=== PATIENT | male | born 1955 | race Caucasian/White ===

== ENCOUNTER 2022-11-07 11:36 | Inpatient (IN) ==
--- NOTE | 2022-11-06 09:50 | Anesthesiology Consultation ---
Date of Service November 06, 2022 Assessment & Plan (1) Encounter for pre-operative examination: Plan - check CBC with diff and BMP STAT am DOS. - Case discussed in detail with Dr. Honeycutt who advised if patient is still experiencing symptoms, surgery should be postponed 1-2 weeks. Pt reports is still wheezing when laying flat, states cough has improved still coughing every morning productive of sputum. He was advised per anesthesia, surgery should be postponed due to respiratory risk. He verbalized understanding, expresses has recently had increased back pain and is concerned with delaying surgery. He denies weakness, lower extremity paresthesias, bowel or bladder changes or saddle anesthesias. I advised pt to call Dr. Lee's office, if Dr. Lee feels surgery cannot wait I will further review with anesthesiologist. I also made surgeon's office aware of above. - medical clearance 10/29/22: "...follow up with ER visit on 10/27...was wheezing, coughing and SOB when laying flat as well as n/v and 10# weight gain over 1 month. W/u was negative for acute concerns...compliant with Advair and Spiriva...seems a little bit better today but still having a cough mostly at nighttime and wheezing...weight likely related to poor physical activity due to back pain...iron overload noted in his liver consistent with hemochromatosis...appointment with hematology pending...COPD, acute exacerbation...will be treated with course of doxycycline for COPD exacerbatio n...will be switched to Trelegy...was not recently admitted but I am afraid he could be if we do not fix his COPD sooner...will follow-up with hematology for discussion of iron overloaded liver and hemochromatosis...aspirin...if stopped, needs to be restarted 24 hours postop...risk for surgery is 0 points...according to [facility] Perioperative Risk calculator...0.3% CHARMAINE risk...current medical conditions are stable and pt is medically optimized for surgery..." - COVID screening: Per errand runner on 11/01/2022: Pt returning from [facility] DOS. To surgeon's discretion if preop COVID testing is needed. Chart Review Chart Review: Pending: Refer to Additional Notes / Consult section and Patient NOT seen in Pre Admission Testing History Surgery Operation Date: 11/07/22 12:55 Proposed Procedures p L3-L4 Decompression - Kwesi Lee DO s L4 Kyphoplasty - Kwesi Lee DO Height/Weight Height: 5 ft 10 in Weight: 96.615 kg Allergies Allergy/AdvReac Type Severity Reaction Status Date / Time phenazopyridine Allergy Mild Rash Verified 11/07/22 12:05 [From Pyridium] Medications Home Medications Medication Instructions Recorded Confirmed Last Taken albuterol sulfate 90 mcg/actuation 2 inh inhalation Q6H PRN SHORT OF 06/21/19 11/07/22 11/07/22 07:00 breath activated powder inhaler BREATH aspirin 81 mg tablet,delayed 81 mg PO Q2D 06/21/19 11/07/22 11/06/22 20:00 release escitalopram oxalate 10 mg tablet 10 mg PO QAM 06/21/19 11/07/22 11/07/22 07:00 (Lexapro) finasteride 5 mg tablet 5 mg PO Q2D 06/21/19 11/07/22 11/06/22 08:00 irbesartan 150 mg tablet 150 mg PO QAM 06/21/19 11/07/22 11/07/22 07:00 rosuvastatin 10 mg tablet 10 mg PO QAM 06/21/19 11/07/22 11/07/22 07:00 tadalafil 5 mg tablet (Cialis) 5 mg PO Q2D 06/21/19 11/07/22 Unknown acetaminophen 500 mg tablet 1,000 mg PO Q6H PRN Pain 11/01/22 11/07/22 11/06/22 22:00 calcium carbonate 600 mg calcium 600 mg PO HS 11/01/22 11/07/22 11/06/22 20:00 (1,500 mg) tablet (Calcium) celecoxib 100 mg capsule (Celebrex) 100 mg PO DAILY PRN Pain 11/01/22 11/07/22 10/31/22 08:00 cholecalciferol (vitamin D3) 100 100 mcg PO HS 11/01/22 11/07/22 10/31/22 08:00 mcg (4,000 unit) capsule cyanocobalamin (vitamin B-12) 1,000 mcg PO HS 11/01/22 11/07/2223 08:00 1,000 mcg tablet (Vitamin B-12) fluticasone 250 mcg-salmeterol 50 1 inh inhalation BID 11/01/22 11/07/22 11/07/22 07:00 mcg/dose blistr powdr for inhalation (Advair Diskus) gabapentin 100 mg capsule 100 mg PO BID 11/01/22 11/07/22 11/07/22 07:00 hydrochlorothiazide 25 mg tablet 25 mg PO QAM 11/01/22 11/07/22 11/07/22 07:00 metoprolol succinate 25 mg 25 mg PO HS 11/01/22 11/07/22 11/06/22 08:00 tablet,extended release 24 hr omeprazole 20 mg tablet,delayed 20 mg PO BID 11/01/22 11/07/22 11/07/22 07:00 release tiotropium bromide 2.5 1 inh inhalation BID 11/01/22 11/07/22 11/07/22 07:00 mcg/actuation mist for inhalation (Spiriva Respimat) tramadol 50 mg tablet 50 mg PO UD 11/01/22 11/07/22 11/07/22 07:00 Active Medications Generic Name Dose Route Start Last Admin Trade Name Freq PRN Reason Stop Dose Admin Acetaminophen 1,000 mg 11/07/22 06:00 11/07/22 12:14 Acetaminophen 500 Mg Tab PO 11/07/22 18:00 1,000 mg PREOP SHAILA Administration Celecoxib 200 mg 11/07/22 06:00 11/07/22 12:15 Celebrex 200 Mg Cap PO 11/07/22 18:00 200 mg PREOP SHAILA Administration Gabapentin 300 mg 11/07/22 06:00 11/07/22 12:15 Gabapentin 300 Mg Cap PO 11/07/22 18:00 300 mg PREOP SHAILA Administration Lactated Ringer's 1,000 mls @ 125 mls/hr 11/07/22 12:15 11/07/22 12:15 Lr IV 12/07/22 12:14 125 mls/hr .Q8H SHAILA Administration Past Medical History Medical History Anxiety BPH (benign prostatic hyperplasia) Chronic obstructive pulmonary disease daily inh Elevated ferritin level per pt's -"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 Social History Smoking Status: Former smoker tobacco type: cigarettes Smoking cigarettes per day: 10 CIG DAILY Do You Dip or Chew Tobacco: No Smoking End Date: 10/31 years ago Hx Alcohol Use: Yes Alcohol type: wine alcohol intake frequency: 0-2 drinks per day Hx Substance Use: No substance use type: does not use Physical Exam Vital Signs Last Vital Signs Temp 36.8 C 11/07/22 12:47 Pulse 72 11/07/22 12:47 Resp 18 11/07/22 12:47 BP 156/106 H 11/07/22 12:47 Pulse Ox 97 11/07/22 12:47 O2 Del Method 11/07/22 12:47 Testing Laboratory Results 11/07/22 11:58 11/07/22 11:58 Blood Type A Positive 11/07/22 11:58 Antibody Screen NEGATIVE 11/07/22 11:58 10/31/2021 WBC: H/H: PLATELETS: SODIUM: POTASSIUM: CHLORIDE: CO2: BUN: CREATININE: GLUCOSE: PT: PTT: INR: UA: yellow, clear, negative TYPE AND SCREEN: COVID: Electrocardiogram Date: 10/27/22 Sinus rhythm, rate 87 bpm Nonspecific T wave abnormality Chest X-Ray Date: 10/27/22 *1 view* No acute cardiopulmonary process identified. No significant change from prior
[~2022-11-07 11:36] MED LIST: ACETAMINOPHEN 500 MG TAB PO SCH; CeleBREX 200 MG CAP PO SCH; GABAPENTIN 300 MG CAP PO SCH; ceFAZolin 2000MG 2,000 MG/15 ML SYR IV SCH
[2022-11-07] MEDS ORDERED: ONDANSETRON INJ 2 MG/ML 2 ML VIAL ONE (11:45)
[2022-11-07] MEDS ORDERED: LIDOCAINE 2% MPF LOCAL 5 ML VIAL INFIL ONE (11:45)
[2022-11-07] MEDS ORDERED: MIDAZOLAM HCL 1 MG/ML 2ML VIAL ONE (11:45)
[2022-11-07] MEDS ORDERED: ROCURONIUM BROMIDE 10 MG/ML 5 ML VIAL IV ONE (11:45)
[2022-11-07] MEDS ORDERED: PROPOFOL IV EMULSION 10 MG/ML 20 ML VIAL IV ONE (11:45)
[2022-11-07] MEDS ORDERED: fentaNYL citrate 100 MCG/2 ML VIAL ONE (11:45)
[2022-11-07] MEDS ORDERED: DEXAMETHASONE SOD INJ 4 MG/ML VIAL ONE (11:45)
[2022-11-07] MEDS: LACTATED RINGER'S 1,000 ML IV SCH ×2 (12:15→21:45)
[2022-11-07 12:23] LABS: Basophils # (auto) 0.03 K/uL (0-0.2); Basophils % (auto) 0.4 %; Eosinophils # (auto) 0.04 K/uL (0-0.50); Eosinophils % (auto) 0.6 %; Hematocrit (blood only) 39.5 % (40.1-51.0); Hemoglobin 14.2 g/dl (14.0-18.0); Immature Granulocytes # (auto) 0.03 K/uL (0.00-0.02); Immature Granulocytes % (auto) 0.4 %; Lymphocytes % (auto) 14.9 %; Mean Corpuscular Hemoglobin 32.9 pg (25.0-34.0); Mean Corpuscular Hgb Conc 35.9 g/dL (32.0-36.0); Mean Corpuscular Volume 91.6 fL (80.0-100.0); Mean Platelet Volume 9.2 fL (9.4-12.4); Neutrophils # (auto) 5.21 K/uL (1.4-6.5); Neutrophils % (auto) 77.7 %; Platelet Count 184 K/uL (130-400); RDW Coefficient of Variation 12.5 % (11.5-14.5); Red Blood Count 4.31 M/uL (4.63-6.08); White Blood Count 6.71 K/ul (4.8-10.8)
[2022-11-07 12:39] LABS: Calcium 10.9 mg/dl (8.5-10.1); Creatinine Clr Calc Pharmacy 80.7 ml/min; Est GFR (African American) 88.6 ml/min; Est GFR (Non-African American) 76.5 ml/min; Potassium 4.2 mmol/L (3.5-5.1)
[2022-11-07] MEDS ORDERED: LABETALOL HCL IV 5 MG/ML 20ML IV PRN (13:28)
[2022-11-07] MEDS ORDERED: ATROPINE SULFATE 0.1 MG/ML 10ML SYR IV PRN (13:28)
[2022-11-07] MEDS ORDERED: ONDANSETRON INJ 2 MG/ML 2 ML VIAL IV PRN ×2 (13:28→17:15)
--- NOTE | 2022-11-07 13:34 | History & Physical Bridge Note ---
Date of Service November 07, 2022 History & Physical Bridge Note I have examined the patient, reviewed the History & Physical and in the interval since the performance of the History & Physical I have noted the following changes of clinical significance: no changes noted
--- NOTE | 2022-11-07 13:36 | History & Physical Report ---
Date of Service November 07, 2022 Assessment & Plan (1) Neurogenic claudication due to lumbar spinal stenosis: Plan: L4 kyphoplasty, L3-L4 decompression History of Present Illness Chief Complaint: Back and bilateral leg pain Primary Care Provider: Nany Ornelas PA-C This is a 67-year-old male presents with car persistent back and by leg pain after failing such course of nonoperative care is here for surgical invention. Allergies Allergy/AdvReac Type Severity Reaction Status Date / Time phenazopyridine Allergy Mild Rash Verified 11/07/22 12:05 [From Pyridium] Home Medications Medication Instructions Recorded Confirmed Type albuterol sulfate 90 mcg/actuation 2 inh inhalation Q6H PRN SHORT OF 06/21/19 11/07/22 History breath activated powder inhaler BREATH aspirin 81 mg tablet,delayed 81 mg PO Q2D 06/21/19 11/07/22 History release escitalopram oxalate 10 mg tablet 10 mg PO QAM 06/21/19 11/07/22 History (Lexapro) finasteride 5 mg tablet 5 mg PO Q2D 06/21/19 11/07/22 History irbesartan 150 mg tablet 150 mg PO QAM 06/21/19 11/07/22 History rosuvastatin 10 mg tablet 10 mg PO QAM 06/21/19 11/07/22 History tadalafil 5 mg tablet (Cialis) 5 mg PO Q2D 06/21/19 11/07/22 History acetaminophen 500 mg tablet 1,000 mg PO Q6H PRN Pain 11/01/22 11/07/22 History calcium carbonate 600 mg calcium 600 mg PO HS 11/01/22 11/07/22 History (1,500 mg) tablet (Calcium) celecoxib 100 mg capsule (Celebrex) 100 mg PO DAILY PRN Pain 11/01/22 11/07/22 History cholecalciferol (vitamin D3) 100 100 mcg PO HS 11/01/22 11/07/22 History mcg (4,000 unit) capsule cyanocobalamin (vitamin B-12) 1,000 mcg PO HS 11/01/22 11/07/22 History 1,000 mcg tablet (Vitamin B-12) fluticasone 250 mcg-salmeterol 50 1 inh inhalation BID 11/01/22 11/07/22 History mcg/dose blistr powdr for inhalation (Advair Diskus) gabapentin 100 mg capsule 100 mg PO BID 11/01/22 11/07/22 History hydrochlorothiazide 25 mg tablet 25 mg PO QAM 11/01/22 11/07/22 History metoprolol succinate 25 mg 25 mg PO HS 11/01/22 11/07/22 History tablet,extended release 24 hr omeprazole 20 mg tablet,delayed 20 mg PO BID 11/01/22 11/07/22 History release tiotropium bromide 2.5 1 inh inhalation BID 11/01/22 11/07/22 History mcg/actuation mist for inhalation (Spiriva Respimat) tramadol 50 mg tablet 50 mg PO UD 11/01/22 11/07/22 History Past Med/Surg History Medical History Anxiety BPH (benign prostatic hyperplasia) Chronic obstructive pulmonary disease daily inh Elevated ferritin level per pt's -"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
[2022-11-07] MEDS ORDERED: BUPIVACAINE/EPINEPHRINE 0.25% 1:200,000 30 ML VIAL ONE (13:46)
[2022-11-07] MEDS ORDERED: ceFAZolin 330 MG/ML 1 GM VIAL ONE (13:47)
[2022-11-07] MEDS ORDERED: IOPAMIDOL INJ 61% 15 ML VIAL INSTIL ONE (14:35)
[2022-11-07] MEDS ORDERED: ePHEDrine sulfate 50 MG/ML SYR ONE (14:53)
[2022-11-07] MEDS ORDERED: GLYCOPYRROLATE 0.2 MG/ML VIAL ONE (15:13)
--- NOTE | 2022-11-07 15:14 | Operative Report ---
Post Operative Report Pre & Post Diagnosis Operation Date: 11/07/22 12:55 Pre-Op Diagnosis: #1 lumbar spinal stenosis neurogenic claudication. #2 nonunion of L4 compression fracture Post-Op Diagnosis: Same I identified the patient and participated in the time-out.: Yes Procedure Operation Date: 11/07/22 12:55 Actual Procedures #1 lumbar decompression with bilateral medial facetectomies L3-L4. #2 kyphoplasty of L4 vertebral body. #3 biopsy of L4 vertebral body Surgeon Kwesi Lee DO Thermodynamics Professor Sandy Jimenez Estimated Blood Loss 15 Findings Consistent with Post-Op Diagnosis Specimens Biopsy of L4 vertebral body Indications This is a 67-year-old male presents with current persistent back and bilateral leg pain after failed extensive course of nonoperative care is here for the above-mentioned procedure. Description of Procedure Patient was met with identified informed consent obtained. Patient was then taken to the operative suite underwent a patient placed in a prone position on the Escobar table on top of the Du frame. All bony prominences well-padded eyes inspected to ensure no external pressure placed upon them. This point the lumbar spine was prepped and draped in normal sterile fashion. Sharp dissection with the assistance of Bovie cautery was performed down to and exposing the lamina and interlaminar space at L3-L4. I then created a small bur hole at the confluence of the pars and transverse process of L4 to access the L4 pedicle. By way of fluoroscopy to Kyphon working cannulas were then placed within the L4 vertebral body. Core biopsies were then obtained. Then placed to 20 mm balloons and sequentially inflated under fluoroscopic visualization. Then inserted approximately 4 cc of Kyphon cement. It demonstrated excellent interdigitation. After this is completed performed a midline decompression of L3-L4 including bilateral medial facetectomies addressing significant epidural lipomatosis and arthritic spinal stenosis. After complete decompression the incision was copiously irrigated a 10 round AMI drain inserted. It was then closed with 1 Vicryl the fascia 2-0 Vicryl subcutaneously and 4 Monocryl for final skin closure. Steri-Strips dressings placed. Patient waken taken to PACU stable condition. Please note Sandy Jimenez was present throughout the entire procedure involved the patient positioning complex portions of the surgery and final skin closure. I attest to the content of the Intraoperative Record and any orders documented therein. Any exceptions are noted below.
--- NOTE | 2022-11-07 15:20 | Fluoroscopy Report ---
FL lumbar spine 2-3V CLINICAL HISTORY: L3-L4 DECOMPRESSION L4 KYPHO TECHNIQUE: 2 views were obtained with the C-arm in the OR with the above procedure. Total fluoroscopy time was 142.6 seconds. Radiation dose was 144.64 mGy. Comparison: None available at the time of this dictation. FINDINGS/IMPRESSION: Intraoperative images were obtained of L4 kyphoplasty. Please correlate with intraoperative fluoroscopy and operative report. ACT 112: Negative or not required by law. Electronically signed by: Frank Gardner M.D. 11/07/2022 3:18 PM
[2022-11-07] MEDS ORDERED: FLOSEAL HEMOSTATIC MATRIX 10ML TOP ONE (15:22)
[2022-11-07] MEDS: HYDROmorphone INJ 1 MG/ML SYRINGE IV PRN ×4 (15:45→16:10)
[2022-11-07] MEDS ORDERED: bisacodyL 10 MG SUPP PR PRN (17:15)
[2022-11-07] MEDS ORDERED: ACETAMINOPHEN 500 MG TAB PO PRN (17:15)
[2022-11-07] MEDS ORDERED: LORazepam 0.5 MG TAB PO PRN (17:15)
[2022-11-07] MEDS ORDERED: ASPIRIN 81 MG ECTAB PO SCH (17:15)
[2022-11-07] MEDS ORDERED: LORazepam 2 MG/1 ML VIAL IV PRN (17:15)
[2022-11-07] MEDS ORDERED: HYDROmorphone INJ 1 MG/ML SYRINGE IV PRN (17:15)
[2022-11-07] MEDS ORDERED: PROMETHAZINE HCL 12.5 MG in SODIUM CHLORIDE 0.9% 50 ML IV PRN (17:15)
[2022-11-07] MEDS ORDERED: ONDANSETRON 4 MG OD TAB PO PRN (17:15)
[2022-11-07] MEDS ORDERED: DO NOT ADMINISTER FLU VACCINE PRN (17:15)
[2022-11-07] MEDS ORDERED: FAMOTIDINE 20 MG TAB PO PRN (17:15)
[2022-11-07] MEDS ORDERED: DO NOT ADMINISTER PNEUMOCOCCAL VACCINE PRN (17:15)
[2022-11-07] MEDS ORDERED: hydrOXYzine HCl 25 MG TAB PO PRN (17:15)
[2022-11-07] MEDS ORDERED: ALUMINUM/MAGNESIUM SUSP 30 ML UDC PO PRN (17:15)
[2022-11-07] MEDS ORDERED: METOCLOPRAMIDE HCL INJ 5 MG/ML 2 ML VIAL IV PRN (17:15)
[2022-11-07] MEDS ORDERED: SOD PHOSPHATE/SOD BIPHOSPHATE ENEMA 132 ML BTL PR PRN (17:15)
[2022-11-07] MEDS ORDERED: traMADol HCL 50 MG TABLET PO PRN (17:15)
[2022-11-07] MEDS ORDERED: FINASTERIDE 5 MG TAB PO SCH (17:15)
[2022-11-07] MEDS ORDERED: LACTATED RINGER'S 1,000 ML IV SCH (17:15)
[2022-11-07] MEDS ORDERED: NALOXONE HCL 0.4 MG/1 ML VIAL/CARP IV PRN (17:15)
[2022-11-07] MEDS ORDERED: MAGNESIUM HYDROXIDE SUSP 30 ML UDC PO PRN (17:15)
[2022-11-07] MEDS ORDERED: ACETAMINOPHEN 1,000 MG/100 ML VIAL IV PRN (17:15)
[2022-11-07] MEDS ORDERED: diphenhydrAMINE Capsule 25 MG CAP PO PRN (17:15)
[2022-11-07] MEDS ORDERED: HYDROmorphone INJ 0.5 MG/0.5 ML SYR IV PRN (17:15)
[2022-11-07] MEDS ORDERED: ALBUTEROL HFA 8 GM INHALER INH PRN (17:24)
[2022-11-07] MEDS ORDERED: KETOROLAC TROMETHAMINE 15 MG/ML VIAL IV PRN (17:37)
--- NOTE | 2022-11-07 17:54 | Anesthesiology Progress Note ---
Date of Service November 07, 2022 Anesthesia Post Procedure Vital Signs Vital Signs: Temp Pulse Pulse Resp BP Pulse Ox O2 Del Method 11/07/22 17:30 36.7 C 83 21 117/81 94 Nasal Cannula 11/07/22 17:00 36.7 C 77 12 117/81 92 Nasal Cannula 11/07/22 15:50 72 13 138/87 97 Oxymask 11/07/22 16:30 36.7 C 78 12 131/79 92 Nasal Cannula 11/07/22 16:20 36.7 C 74 11 L 129/82 94 Oxymask 11/07/22 16:10 36.7 C 74 11 L 123/88 94 Oxymask 11/07/22 16:00 75 16 138/91 95 Oxymask 11/07/22 15:40 75 12 142/88 H 98 Oxymask 11/07/22 15:30 36.3 C L 78 16 190/99 H 99 Oxymask 11/07/22 12:47 36.8 C 72 18 156/106 H 97 Room Air O2 Flow Rate 11/07/22 17:30 2 11/07/22 17:00 2 11/07/22 15:50 4 11/07/22 16:30 2 11/07/22 16:20 2 11/07/22 16:10 2 11/07/22 16:00 3 11/07/22 15:40 4 11/07/22 15:30 5 11/07/22 12:47 Pain Intensity Lower Back: Pain Intensity: 5 Transfer of Care Handoff Completed per policy Notes Mental Status: alert / awake / arousable and participated in evaluation Patient Amnestic to Procedure: Yes Nausea / Vomiting: adequately controlled Pain: adequately controlled Airway Patency, RR, SpO2: stable & adequate BP & HR: stable & adequate Hydration State: stable & adequate Anesthetic Complications: no major complications apparent and Pt Satisfied with anesthetic care
--- NOTE | 2022-11-07 18:47 | Hospitalist Consultation ---
Date of Consultation November 07, 2022 Assessment & Plan (1) Neurogenic claudication due to lumbar spinal stenosis: - POD # 0 s/p lubar decompression with bilateral medial facetectomies L3-L4 by Dr. Lee on 11/07/22 - Pain management, bowel regimen and DVT ppx per the primary team - PT/OT consults - Follow am CBC to monitor for acute blood loss, hgb was 14.2 today preoperatively - Aspirin 81 mg every other day for heart health, on hold prior to surgery, resume per primary team (2) Hypertension: - Continue on HCTZ, irbesartan, metoprolol succinate (3) Hyperlipidemia: -Continue statin therapy with rosuvastatin 10 mg daily (4) Chronic obstructive pulmonary disease: -Pt was using doxycycline 100 mg BID x 10 d since 10/29/21 for recent upper respiratory infection per PCP. Pt recieved ancef preoperatively here. No need to continue doxy at this time as he has completed 8 day course and without upper respiratory symptoms. - Uses Spiriva BID, Advair, continue - Does not wear supplemental O2 at baseline - wean as tolerated (5) GERD (gastroesophageal reflux disease): -Continue omeprazole, stable (6) BPH (benign prostatic hyperplasia): -Continue finasteride and tadalafil CODE: FULL Dispo: From home, discharg per the primary team Thank you for involving us in the care of Mr. Marrufo. Please do not hesitate to call with questions or concerns. At this time medicine service will follow along. A total of 46 minutes were spent with greater than 50% of that time face to face with the patient, personally reviewing all current laboratories, imaging studies, past medication reconciliation, outpatient chart review, and discussion with specialists to collaborate care for the patient with attending. Please see attending documentation for corrections and/or additions. Supervising Physician Co-Signing Physician Notes I have seen and examined the patient and have discussed the case with the provider above. I agree with the assessment and plan as stated. 67 yo M s/p lumbar surgery, doing well post operatively. Medications reviewed and agree wtih stopping doxycycline at this time. Lungs are CTAB. Pt denies any unexpected pain and no numbness in feet, CP or SOB. Doing well overall. AMI drain in place. Agree with plan as above. Thank you for this consultation. DO Gary History of Present Illness Reason for Consultation: Medical management Requesting Physician: Dr. Lee Attending Physician: Kwesi Lee, DO History of Present Illness This is a 67 yo M with PMhx of HTN, HLD, COPD, elevated ferritin level with hemochromatosis hx, obstructive sleep apnea not on CPAP due to recall, anxiety, BPH who presents to the hospital for elective L3-L4 decompression fusion by Dr. Lee on 11/07/2022. Patient reports that he is doing well after having surgical procedure. Patient can feel both of his toes, move his ankles knees and feet, and denies any numbness. Prior to surgery he reports having extreme nerve shooting pain worse down the left side of his legs compared to the right which has been going on since February 2022. Subsequently due to pain and immobility, he also gained approximately 20 pounds. He has been off of Celebrex x1 week which was the most alleviating medication for his back pain. He also notes that he has been taking doxycycline 100 mg BID x10d for a presumed respiratory infection with his hx of COPD since 10/29/2022 per his PCP. Pt has 4 pills left to complete the course. Tonight patient tolerated p.o. intake wi thout nausea or abdominal pain. Last bowel movement was this morning, has not urinated since having surgery. Patient has not yet been up or moved to bedside chair. His is present with him at bedside. Allergies Allergy/AdvReac Type Severity Reaction Status Date / Time phenazopyridine Allergy Mild Rash Verified 11/07/22 12:05 [From Pyridium] Home Medications Medication Instructions Recorded Confirmed Type albuterol sulfate 90 mcg/actuation 2 inh inhalation Q6H PRN SHORT OF 06/21/19 11/07/22 History breath activated powder inhaler BREATH aspirin 81 mg tablet,delayed 81 mg PO Q2D 06/21/19 11/07/22 History release escitalopram oxalate 10 mg tablet 10 mg PO QAM 06/21/19 11/07/22 History (Lexapro) finasteride 5 mg tablet 5 mg PO Q2D 06/21/19 11/07/22 History irbesartan 150 mg tablet 150 mg PO QAM 06/21/19 11/07/22 History rosuvastatin 10 mg tablet 10 mg PO QAM 06/21/19 11/07/22 History tadalafil 5 mg tablet (Cialis) 5 mg PO Q2D 06/21/19 11/07/22 History acetaminophen 500 mg tablet 1,000 mg PO Q6H PRN Pain 11/01/22 11/07/22 History calcium carbonate 600 mg calcium 600 mg PO HS 11/01/22 11/07/22 History (1,500 mg) tablet (Calcium) celecoxib 100 mg capsule (Celebrex) 100 mg PO DAILY PRN Pain 11/01/22 11/07/22 History cholecalciferol (vitamin D3) 100 100 mcg PO HS 11/01/22 11/07/22 History mcg (4,000 unit) capsule cyanocobalamin (vitamin B-12) 1,000 mcg PO HS 11/01/22 11/07/22 History 1,000 mcg tablet (Vitamin B-12) fluticasone 250 mcg-salmeterol 50 1 inh inhalation BID 11/01/22 11/07/22 History mcg/dose blistr powdr for inhalation (Advair Diskus) gabapentin 100 mg capsule 100 mg PO DAILY 11/01/22 11/07/22 History hydrochlorothiazide 25 mg tablet 25 mg PO QAM 11/01/22 11/07/22 History metoprolol succinate 25 mg 25 mg PO HS 11/01/22 11/07/22 History tablet,extended release 24 hr omeprazole 20 mg tablet,delayed 20 mg PO BID 11/01/22 11/07/22 History release tiotropium bromide 2.5 1 inh inhalation BID 11/01/22 11/07/22 History mcg/actuation mist for inhalation (Spiriva Respimat) tramadol 50 mg tablet 50 mg PO UD 11/01/22 11/07/22 History Patient History Medical History Anxiety BPH (benign prostatic hyperplasia) Chronic obstructive pulmonary disease daily inh Elevated ferritin level per pt's -"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 Family History Other No significant family history Social History Smoking Status: Former smoker Cigarettes Per Day: 10 CIG DAILY; Smoking End Date: 1/5 years ago; Second Hand Exposure: No; Do You Dip or Chew Tobacco: No; Tobacco Cessation Education Requested by Patient: No Hx Alcohol Use: Yes Alcohol type: wine Hx Substance Use: No Preferred Language: Angolan Communication Ability: Effective Packaging Sales Consultant Required: No Beliefs That Will Affect Care: None Current Living Situation: Spouse Other Information That Helps Us Care for You: No Feels Safe at Home: Yes Safety Concerns: Feels Safe At This Time Assistive Devices: Cane Review of Systems Review of Systems: Constitutional: No fever, sweats or chills Eyes: No diplopia, no worsening or blurred vision ENT: normal hearing, no trouble swallowing Respiratory: No cough, sputum, dyspnea at rest or on exertion Cardiovascular: No chest pain, tightness or palpitations Abdomen: No pain, nausea, vomiting, diarrhea or constipation Musculoskeletal: No joint pain, calf pain, swelling Neurologic: No weakness, numbness/tingling, or balance problems Psychiatric: No anxiety or depression Skin: No rash or itch Physical Exam Physical Exam: General: awake, alert, no apparent distress Head: Normocephalic, atraumatic ENT: PERRL, EOMI, no pharyngeal exudate, mucous membranes moist Chest: Clear to auscultation, on 2 L via NC with sats 95%, no adventitious breath sounds Cardiac: Regular rate and rhythm, no murmur, no JVD, normal peripheral pulses, good capillary refill Abdominal: NABS x 4 quadrants, soft, nondistended, nontender to palpation, no rebound or guarding Back: dressing c/d/i, AMI drain in place Extremities: Normal inspection, no peripheral edema or erythema, calfs nontender to palpation Psych: Normal mood and affect Neuro: AAO x 3, strength intact bilaterally and rated 5/5, no motor deficits, speech is clear, no peripheral sensory deficits Results & Data Results & Data ([facility]) Vital Signs (Past 12 Hours) Vital Signs Temp Pulse Pulse Resp BP Pulse Ox O2 Del Method 11/07/22 18:39 37 C 90 16 139/87 95 Nasal Cannula 11/07/22 18:00 36.7 C 85 17 134/85 93 Nasal Cannula 11/07/22 17:30 36.7 C 83 21 117/81 94 Nasal Cannula 11/07/22 17:00 36.7 C 77 12 117/81 92 Nasal Cannula 11/07/22 15:50 72 13 138/87 97 Oxymask 11/07/22 16:30 36.7 C 78 12 131/79 92 Nasal Cannula 11/07/22 16:20 36.7 C 74 11 L 129/82 94 Oxymask 11/07/22 16:10 36.7 C 74 11 L 123/88 94 Oxymask 11/07/22 16:00 75 16 138/91 95 Oxymask 11/07/22 15:40 75 12 142/88 H 98 Oxymask 11/07/22 15:30 36.3 C L 78 16 190/99 H 99 Oxymask 11/07/22 12:47 36.8 C 72 18 156/106 H 97 Room Air O2 Flow Rate 11/07/22 18:39 2 11/07/22 18:00 2 11/07/22 17:30 2 11/07/22 17:00 2 11/07/22 15:50 4 11/07/22 16:30 2 11/07/22 16:20 2 11/07/22 16:10 2 11/07/22 16:00 3 11/07/22 15:40 4 11/07/22 15:30 5 11/07/22 12:47 Laboratory Results Short CBC 11/07/22 Range/Units 11:58 WBC 6.71 (4.8-10.8) K/ul Hgb 14.2 (14.0-18.0) g/dl Hct 39.5 L (40.1-51.0) % Plt Count 184 (130-400) K/uL BMP 11/07/22 11:58 Sodium 134 L Potassium 4.2 Chloride 98 Carbon Dioxide 27 BUN 22 Creatinine 1.00 Glucose 96 Calcium 10.9 H Medications Administered Current Inpatient Medications Acetaminophen (Acetaminophen 500 Mg Tab) 1,000 mg PO Q8H PRN PRN Reason: MILD Pain Scale 1,2,3 & Pre PT Stop: 12/07/22 17:14 Al Hydrox/Mg Hydrox/Simethicone (Aluminum/Magnesium Susp 30 Ml Udc) 30 ml PO Q6H PRN PRN Reason: Dyspepsia Stop: 12/07/22 17:14 Albuterol (Albuterol Hfa 8 Gm Inhaler) 2 puffs INH Q6H PRN PRN Reason: SHORT OF BREATH Stop: 12/07/22 17:23 Aspirin (Aspirin 81 Mg Ectab) 81 mg PO Q2D [facility] Stop: 12/07/22 17:14 Atropine Sulfate (Atropine Sulfate 0.1 Mg/Ml 10ml Syr) 0.5 mg IV Q1M PRN PRN Reason: PACU Use-HR<40 &/or Bradycardi Stop: 11/07/22 21:28 Bisacodyl (Bisacodyl 10 Mg Supp) 10 mg NC DAILY PRN PRN Reason: Constipation Stop: 12/07/22 17:14 Calcium Carbonate (Calcium Carbonate 1250mg Tab) 1,250 mg PO HS SHAILA Stop: 12/07/22 20:59 Diphenhydramine HCl (Diphenhydramine Capsule 25 Mg Cap) 25 mg PO Q6H PRN PRN Reason: Allergic Rhinitis/Insomnia Stop: 12/07/22 17:14 Escitalopram Oxalate (Escitalopram Oxalate 10 Mg Tab) 10 mg PO QAM [facility] Stop: 12/08/22 08:59 Famotidine (Famotidine 20 Mg Tab) 20 mg PO Q12H PRN PRN Reason: Dyspepsia Stop: 12/07/22 17:14 Finasteride (Finasteride 5 Mg Tab) 5 mg PO Q2D [facility] Stop: 12/07/22 17:14 Fluticasone/Vilanterol (Fluticasone/Vilanterol 200/25mcg 14 Puffs/Inhaler) 1 puffs INH DAILY [facility] Stop: 12/08/22 08:59 Gabapentin (Gabapentin 100 Mg Cap) 100 mg PO BID SHAILA Stop: 12/07/22 20:59 Hydrochlorothiazide (Hydrochlorothiazide 25 Mg Tab) 25 mg PO QAM [facility]A Stop: 12/08/22 08:59 Hydromorphone HCl (Hydromorphone Inj 1 Mg/Ml Syringe) 0.25 mg IV Q5M PRN PRN Reason: PACU Use Only-Pain Stop: 11/07/22 21:29 Last Admin: 11/07/22 16:10 Dose: 0.25 mg Hydromorphone HCl (Hydromorphone Inj 0.5 Mg/0.5 Ml Syr) 0.5 mg IV Q3H PRN PRN Reason: MODERATE Pain (Scale 4,5,6) & Pre PT Stop: 11/21/22 17:14 Hydromorphone HCl (Hydromorphone Inj 1 Mg/Ml Syringe) 1 mg IV Q3H PRN PRN Reason: SEVERE Pain (Scale 7,8,9,10) Stop: 11/21/22 17:14 Hydroxyzine HCl (Hydroxyzine Hcl 25 Mg Tab) 25 mg PO Q8H PRN PRN Reason: Anxiety Stop: 12/07/22 17:14 Lactated Ringer's (Lr) 1,000 mls @ 125 mls/hr IV .Q8H [facility] Stop: 12/07/22 12:14 Last Infusion: 11/07/22 14:00 Dose: Infused Lactated Ringer's (Lr) 1,000 mls @ 150 mls/hr IV .Q6H40M [facility]AILA Stop: 12/07/22 17:14 Promethazine HCl 12.5 mg/ (Sodium Chloride) 50.5 mls @ 202 mls/hr IV Q6H PRN PRN Reason: Nausea &/or Vomiting Stop: 12/07/22 17:14 Acetaminophen (Ofirmev) 1,000 mg in 100 mls @ 400 mls/hr IV Q8H PRN PRN Reason: Pain Rating 1-3 & Pre PT Stop: 11/08/22 17:15 Cefazolin Sodium (Ancef 2000mg) 2,000 mg in 15 mls @ 3.75 mls/min IV Q8H [facility]; Protocol Stop: 11/08/22 05:33 Influenza Virus Vaccine Quadrival (Do Not Administer Flu Vaccine) 1 each N/A PRN PRN PRN Reason: Notification Stop: 12/07/22 17:14 Irbesartan (Irbesartan 150 Mg Tab) 150 mg PO QAM [facility] Stop: 12/08/22 08:59 Ketorolac Tromethamine (Ketorolac Tromethamine 15 Mg/Ml Vial) 15 mg IV Q6H PRN PRN Reason: Pain Labetalol HCl (Labetalol Hcl Iv 5 Mg/Ml 20ml) 5 mg IV Q5M PRN PRN Reason: PACU Use-SBP>160 or DBP>100 Stop: 11/07/22 21:29 Lorazepam (Lorazepam 0.5 Mg Tab) 0.5 mg PO Q8H PRN PRN Reason: Sedation/Anxiety Stop: 12/07/22 17:14 Lorazepam (Lorazepam 2 Mg/1 Ml Vial) 0.5 mg IV Q8H PRN PRN Reason: Sedation/Anxiety Stop: 12/07/22 17:14 Magnesium Hydroxide (Magnesium Hydroxide Susp 30 Ml Udc) 30 ml PO Q24H PRN PRN Reason: Constipation Stop: 12/07/22 17:14 Metoclopramide HCl (Metoclopramide Hcl Inj 5 Mg/Ml 2 Ml Vial) 10 mg IV Q6H PRN PRN Reason: Nausea &/or Vomiting Stop: 12/07/22 17:14 Metoprolol Succinate (Metoprolol Succ 25mg Ext Rel Tab) 25 mg PO HS [facility] Stop: 12/07/22 20:59 Naloxone HCl (Naloxone Hcl 0.4 Mg/1 Ml Vial/Carp) 0.1 mg IV Q5M PRN PRN Reason: Oversedation/Resp depression Stop: 12/07/22 17:14 Ondansetron HCl (Ondansetron Inj 2 Mg/Ml 2 Ml Vial) 4 mg IV ONCE PRN PRN Reason: PACU Use Only-Nausea/Vomiting Stop: 11/07/22 21:29 Ondansetron HCl (Ondansetron Inj 2 Mg/Ml 2 Ml Vial) 4 mg IV Q6H PRN PRN Reason: Nausea &/or Vomiting Stop: 12/07/22 17:14 Ondansetron HCl (Ondansetron 4 Mg Od Tab) 4 mg PO Q6H PRN PRN Reason: Nausea Stop: 12/07/22 17:14 Oxycodone HCl (Oxycodone Hcl Ir 5 Mg Tab (Immediate Release)) 5 - 10 mg PO Q4H PRN PRN Reason: Pain & Pre PT Stop: 11/21/22 17:14 Pantoprazole Sodium (Pantoprazole 40 Mg Tab) 40 mg PO BID [facility] Stop: 12/07/22 20:59 Pneumococcal Polyvalent Vaccine (Do Not Administer Pneumococcal Vaccine) 1 each N/A PRN PRN PRN Reason: Notification Stop: 12/07/22 17:14 Polyethylene Glycol (Polyethylene (Miralax) 17 Gm Pack) 17 gm PO Q6 [facility] Stop: 12/08/22 05:59 Rosuvastatin Calcium (Rosuvastatin Calcium 10 Mg Tab) 10 mg PO QAM [facility] Stop: 12/08/22 08:59 Senna/Docusate Sodium (Docusate Sodium/Senna 50/8.6mg Tab) 2 tab PO HS [facility] Stop: 12/07/22 20:59 Sodium Biphosphate/Sodium Phosphate (Sod Phosphate/Sod Biphosphate Enema 132 Ml Btl) 132 ml NC ONE PRN PRN Reason: Constipation Stop: 12/07/22 17:14 Tramadol HCl (Tramadol Hcl 50 Mg Tablet) 50 - 100 mg PO Q4H PRN PRN Reason: Moderate-Severe pain & Pre PT Stop: 12/07/22 17:14 Umeclidinium [place] (Umeclidinium [place] 62.5mcg/Blister 7 Puffs/Inhaler) 1 puffs INH DAILY [facility] Stop: 12/08/22 08:59
[2022-11-07] MEDS: oxyCODONE HCL IR 5 MG TAB (IMMEDIATE RELEASE) PO PRN (20:39)
[2022-11-07] MEDS ORDERED: METOPROLOL SUCC 25MG EXT REL TAB PO SCH (21:00)
[2022-11-07] MEDS ORDERED: DOCUSATE SODIUM/SENNA 50/8.6MG TAB PO SCH (21:00)
[2022-11-07] MEDS ORDERED: CALCIUM CARBONATE 1250MG TAB PO SCH (21:00)
[2022-11-07] MEDS: PANTOprazole 40 MG TAB PO SCH (21:38)
[2022-11-07] MEDS: GABAPENTIN 100 MG CAP PO SCH (21:38)
[2022-11-07] MEDS: ceFAZolin 2000MG 2,000 MG/15 ML SYR IV SCH (22:53)
[2022-11-08] MEDS: oxyCODONE HCL IR 5 MG TAB (IMMEDIATE RELEASE) PO PRN ×3 (02:24→13:26)
[2022-11-08] MEDS: ceFAZolin 2000MG 2,000 MG/15 ML SYR IV SCH (04:58)
[2022-11-08] MEDS: POLYETHYLENE (MIRALAX) 17 GM PACK PO SCH ×2 (05:09→11:15)
[2022-11-08] MEDS: LACTATED RINGER'S 1,000 ML IV SCH (05:21)
[2022-11-08] MEDS ORDERED: ESCITALOPRAM OXALATE 10 MG TAB PO SCH (09:00)
[2022-11-08] MEDS ORDERED: IRBESARTAN 150 MG TAB PO SCH (09:00)
[2022-11-08] MEDS ORDERED: FLUTICASONE/VILANTEROL 200/25MCG 14 PUFFS/INHALER INH SCH (09:00)
[2022-11-08] MEDS ORDERED: ROSUVASTATIN CALCIUM 10 MG TAB PO SCH (09:00)
[2022-11-08] MEDS ORDERED: UMECLIDINIUM BROMIDE 62.5MCG/BLISTER 7 PUFFS/INHALER INH SCH (09:00)
[2022-11-08] MEDS: GABAPENTIN 100 MG CAP PO SCH (09:33)
[2022-11-08] MEDS: hydroCHLOROthiazide 25 MG TAB PO SCH ×2 (09:33→10:40)
[2022-11-08] MEDS: PANTOprazole 40 MG TAB PO SCH (09:34)
--- NOTE | 2022-11-08 10:29 | Discharge Summary ---
Date of Service November 08, 2022 Admission HPI Per Admitting Provider This is a 67-year-old male presents with car persistent back and by leg pain after failing such course of nonoperative care is here for surgical invention. Principal Diagnosis L4 compression fracture Discharge Data Allergies Allergy/AdvReac Type Severity Reaction Status Date / Time phenazopyridine Allergy Mild Rash Verified 11/07/22 12:05 [From Pyridium] Consultations 11/07/22 17:15 Consult Hospitalist Routine Procedures Performed Operation Date: 11/07/22 12:55 Actual Procedures p L3-L4 Decompression(Not Applicable) - Kwsei Lee DO s L4 Kyphoplasty(Not Applicable) - Kwesi Lee DO Ordered Studies 11/07/22 12:55 FL lumbar spine 2-3V Routine Hospital Course (1) Neurogenic claudication due to lumbar spinal stenosis: Patient went kyphoplasty decompression L3-L4 tolerated well second orthopedic for postoperative. Postop day 1 is up and ambulating leg pain markedly improved. Expected testing. AMI drain decreased probably. Pain well controlled. Socially discharged home. Discharge orders instructions from the chart for further review. Total Time Total Time Spent Total Time Spent (In Minutes): 20 minutes Discharge Plan Discharge Items Patient Disposition: Home - Self-Care Reason For Visit: Wedge Compression Fx Lumbar Vertebra Discharge Diagnosis: Lumbar spinal stenosis with compression fracture Activity: As commented below Non-emergency contact: Primary Care Provider Call non-emergency contact if: you have any medication questions Follow-up/Referrals: Nany Ornelas PA-C [Primary Care Provider] - Diet: Regular Addtl Attending Provider Instructions: ACTIVITY RECOMMENDATIONS: SELF CARE INSTRUCTIONS AFTER THORACIC/LUMBAR FUSIONS 1. You may walk to your tolerance. It is good exercise for your legs and back. Expect some back and intermittent leg aches and pains. 2. You may perform "counter-top" level activities (make a sandwich, moustapha with a project, etc.). 3. No bending or lifting of more than 10 pounds or back twisting of any nature (roll like a log when turning in bed). 4. You may ride in a car for 20-30 minutes at a time. No driving until after your first visit with your doctor. 5. Frequent changes of position and restricting sitting to 30 minutes at a time will help limit the amount of back spasms and stiffness you may experience. 6. You may discontinue the use of ambulatory aids (cane, crutches, etc.) once your strength and confidence allow. 7. You may box sealing machine operator the shower and let water strike your incision when you arrive home at least once daily. Do not take a tub bath, sit in a hot tub or go into a swimming pool until after your first recheck in the office. SPECIAL CARE INSTRUCTIONS: VERY IMPORTANT TO READ AND REVIEW A. Your surgical incision has been closed with a cosmetic suture under the skin that will dissolve in about 6 weeks. In 14 days, you can use a pair of clean scissors and cut the suture that is left outside of the skin at the ends of your incision. 1. The small skin tapes can be removed 7 days after surgery if they have not fallen off by that point. 2. You may keep the wound open to air as much as possible to promote healing after post-op day number 5 unless told otherwise by your doctor. 3. If you think the wound looks like it is becoming infected (redness or worsening drainage) and/or you are experiencing fever, chill or worsening back pain and muscle spasms, contact the office so that we may evaluate you as soon as possible. B. Complications are uncommon, but please contact us if you have any signs or symptoms of: 1. wound infection (fever higher than 102.5 degrees F, redness, separation of wound, drainage, or increasing pain from the incision) 2. blood clots in legs (pain, swelling, redness and warmth in legs) 3. urinary tract infection (fever higher than 102.5 degrees F, burning upon urination or increased frequency of urination) 4. nerve problems (inability to walk on your toes or heels, numbness, loss of bowel or bladder control) 5. any other symptoms that concern you C. Please call the office at if you have any concerns or questions about your operation or recovery. D. No smoking! Smoking drastically decreases the chance of a solid fusion. E. Do not take any anti-inflammatory medications (Indocin, Advil, Motrin, Aspirin, Naprosyn, etc.) as these may inhibit the chance of a solid fusion. Tylenol is okay to take for pain. MANAGING PAIN AFTER SPINAL SURGERY 1. Narcotic medication is intended for short-term use and will be provided for surgical pain. Surgical pain usually lasts for a period of 4-6 weeks. Narcotic medication includes Percocet, Vicodin, Darvocet, Tylenol #3 or Lortab. 2. Longer-term pain is more appropriately treated with non-narcotic medication such as Tylenol ES. 3. Muscle spasm is not appropriately treated with narcotics. Muscle relaxers such as Soma, Flexeril or Skelaxin can be used along with Tylenol ES. 4. Remember that we all live with some "aches and pains". This is not unusual or uncommon after an injury or as we get older. a. Back pain is expected and may include muscle spasms for 4 to 6 weeks after surgery. The pain should gradually improve. If the pain worsens for no apparent reason, please contact the office. b. Intermittent leg pain may also be experienced and should not be concerned about unless it worsens for no apparent reason. If so, please contact the office. 5. We will provide appropriate medication within the normal guidelines of their prescribed use. We will also be very cautious and aware of potential abuse and extended duration of patients' medication needs. a. Pain medications are for your comfort and to assist with sleep and rest so that the tissue can heal. They are not provided in order to return to normal activity and should not be used through the day. To do so or worsening pain at night can result from ongoing tissue damage and development of tolerance to the prescribed medicine. 6. Please allow 2-3 days to process refills. Prescriptions will not be mailed but must be picked up at the office. FOLLOW UP VISIT: Keep your scheduled follow-up appointment. Any questions, please call the office at . Pending Studies at Discharge: No Stand-Alone Forms: [facility], Smoking Cessation Medications and DC Order Prescriptions: New oxycodone 5 mg tablet 5 mg PO Q6H PRN (Reason: pain, severe) Qty: 20 0RF Continued aspirin 81 mg Tablet,Delayed Release (Dr/Ec) 81 mg PO Q2D irbesartan 150 mg Tablet 150 mg PO QAM finasteride 5 mg Tablet 5 mg PO Q2D escitalopram oxalate [Lexapro] 10 mg Tablet 10 mg PO QAM rosuvastatin 10 mg Tablet 10 mg PO QAM tadalafil [Cialis] 5 mg Tablet 5 mg PO Q2D albuterol sulfate 90 mcg/actuation Aerosol Powdr Breath Activated 2 inh INHALATION Q6H PRN (Reason: SHORT OF BREATH) fluticasone propion-salmeterol [Advair Diskus] 250-50 mcg/dose Blister With Device 1 inh INHALATION BID cyanocobalamin (vitamin B-12) [Vitamin B-12] 1,000 mcg Tablet 1,000 mcg PO HS tramadol 50 mg Tablet 50 mg PO UD Rx Instructions: 50mg QAM; 50mg HS prn acetaminophen 500 mg Tablet 1,000 mg PO Q6H PRN (Reason: Pain) calcium carbonate [Calcium 600] 600 mg calcium (1,500 mg) Tablet 600 mg PO HS hydrochlorothiazide 25 mg Tablet 25 mg PO QAM gabapentin 100 mg Capsule 100 mg PO DAILY Label Comments: starting on 11/06/22 pt will be taking 100mg daily for 1 week, then prescription no longer will be taken. metoprolol succinate 25 mg Tablet Extended Release 24 Hr 25 mg PO HS celecoxib [Celebrex] 100 mg Capsule 100 mg PO DAILY PRN (Reason: Pain) omeprazole 20 mg Tablet,Delayed Release (Dr/Ec) 20 mg PO BID cholecalciferol (vitamin D3) 100 mcg (4,000 unit) Capsule 100 mcg PO HS Spiriva Respimat 2.5 mcg/actuation Mist 1 inh INHALATION BID Discharge Orders: Discharge Order (Routine); Ordered 11/08/22 Ordered By: Kwesi Lee Admission Data Admit Date/Time: 11/07/22 15:18 Attending Provider: Kwesi Lee Admit Provider: Kwesi Lee Primary Care Provider: Nany Ornelas Other Providers: Mariposa Vega ; Dirk Lynch
--- NOTE | 2022-11-08 11:16 | Hospitalist Progress Note ---
Date of Service November 08, 2022 Assessment & Plan (1) Neurogenic claudication due to lumbar spinal stenosis: Plan: - POD # 1 s/p lubar decompression with bilateral medial facetectomies L3-L4 by Dr. Lee on 11/07/22 - No Postop complication - Pain control as per ortho - Hgb stable - Continue PT/OT (2) Hypertension: Plan: - Continue on HCTZ, irbesartan, metoprolol succinate (3) Hyperlipidemia: Plan: -Continue statin therapy with rosuvastatin 10 mg daily (4) Chronic obstructive pulmonary disease: Plan: -Pt was using doxycycline 100 mg BID x 10 d since 10/29/21 for recent upper respiratory infection per PCP. Pt recieved ancef preoperatively here. No need to continue doxy at this time as he has completed 8 day course and without upper respiratory symptoms. - Uses Spiriva BID, Advair, continue - Does not wear supplemental O2 at baseline - wean as tolerated (5) GERD (gastroesophageal reflux disease): Plan: -Continue omeprazole, stable (6) BPH (benign prostatic hyperplasia): Plan: -Continue finasteride and tadalafil CODE: FULL Dispo: From home, discharge per the primary team Thank you for involving us in the care of Mr. Marrufo. Please do not hesitate to call with questions or concerns. Admission and Anticipated Discharge Date Admission Date: November 07, 2022 Subjective Pt was seen and examined for postop follow up Lying in bed with no acute distress Pt said that pain improves denies any chest pain, palpitation, dizziness and SOB Review of Systems Review of Systems: All systems reviewed & are unremarkable except as noted in Subjective Physical Exam Physical Exam: General- No acute distress Head- atraumatic Eyes- PERRL, EOMI, ENT- oropharynx clear Neck- supple, no JVD Lungs- clear to auscultation Heart- regular rhythm; no murmur Abdomen- normal bowel sounds, soft, nontender Extremities- no calf tenderness Neuro- alert, oriented x 3; PERRL, EOMI; no facial palsy; no dysarthria Skin- warm & dry Results & Data Results & Data ([facility]) Vital Signs (Past 12 Hours) Vital Signs Temp Pulse Pulse Resp BP Pulse Ox O2 Del Method 11/08/22 10:51 37.0 C 68 78 13 127/80 95 11/08/22 10:39 78 127/80 11/08/22 07:49 37.0 C 68 13 151/82 H 95 Room Air 11/08/22 04:57 36.4 C L 70 20 147/84 H 95 Room Air 11/07/22 23:20 85 95 Room Air
--- NOTE | 2022-11-19 13:05 | Coding Query ---
CODING QUERY To promote full compliance with coding requirements relating to patient care, provider participation is requested in all cases of microfilm machine operator uncertainty. Please assist us with the question(s) below: Coding Question(s): Please clarify below, in your clinical opinion, regarding the nonunion L4 Compression Fracture, to determine if the compression fracture was from trauma, or if it was pathological not from trauma: (x ) L4 Compression Fracture was from Trauma ( ) L4 Compression Fracture was Pathological, not from Trauma ( ) L 4 Compression Fracture was from Other: Please Specify Physician's Response(s): Thank you Leora Rowland Principal Diagnosis: "that condition established after study, to be chiefly responsible for occasioning the admission of the patient to the hospital for care." Co-Existing Principal Diagnosis: "when two or more diagnoses equally meet the criteria for principal diagnosis as determined by the circumstances of admission, diagnostic work up, and/or therapy provided, and the Alphabetic Index, Tabular List, or another coding guideline does not provide sequencing direction, any one of the diagnoses may be sequenced first." "When the physician has documented what appears to be a current diagnosis in the body of the record, but has not included the diagnosis in the final diagnostic statement, the physician should be asked whether the diagnosis should be added." ([facility] 2 QTR90. p3-4) YONAS
== END 2022-11-08 13:38 | disposition home or self-care (01) | DRG 478 ==
LOC: ASU 11:36 → PACUINP 15:18 → 3W 18:31